=== PATIENT | female | born 1985 | race Caucasian/White ===

== ENCOUNTER 2017-08-10 05:41 | Inpatient (IN) | payer OTHER ==
[2017-08-10] MEDS ORDERED: RINGERS SOLUTION,LACTATED 1,000 ML IV SCH (06:45)
[2017-08-10 07:22] LABS: BASOPHILS % (AUTO) 0.2 % (0.0-2.0); EOSINOPHILS % (AUTO) 1.4 % (1.0-6.0); HEMOGLOBIN 10.9 g/dL (12.0-16.0); LYMPHOCYTES # (AUTO) 1.7 K/uL (1.0-4.8); LYMPHOCYTES % (AUTO) 17.6 % (22.0-44.0); MEAN CORPUSCULAR HEMOGLOBIN 29.3 pg (26.0-34.0); MEAN CORPUSCULAR HGB CONC 34.1 G/dL (31.0-37.0); MEAN CORPUSCULAR VOLUME 86 fL (80-100); MONOCYTES # (AUTO) 0.6 K/uL (0.1-1.0); MONOCYTES % (AUTO) 6.1 % (2.0-9.0); NEUTROPHILS # (AUTO) 7.2 K/uL (1.8-7.7); NEUTROPHILS % (AUTO) 74.7 % (40.0-70.0); PLATELET COUNT (AUTO)-OB 176 K/uL (150-450); RED BLOOD CELL COUNT(AUTO) 3.72 MIL/uL (4.00-5.20); RED CELL DISTRIBUTION WIDTH 13.6 % (11.5-14.5)
[2017-08-10] MEDS ORDERED: RINGERS SOLUTION,LACTATED 1,000 ML IV ONE (07:40)
[2017-08-10] MEDS ORDERED: METOCLOPRAMIDE HCL 5 MG/ML 2 ML VIAL IVP ONE (07:45)
[2017-08-10] MEDS ORDERED: CITRIC ACID/SODIUM CITRATE 30 ML SOLUTION UDCUP PO ONE (07:45)
[2017-08-10 08:06] VITALS: BP 113/57
[2017-08-10] MEDS ORDERED: CeFAZolin 2 GM/DEXTROSE 50 ML IV ONE (08:23)
[2017-08-10] MEDS ORDERED: FentaNYL CITRATE-PF 100 MCG/2 ML VIAL ONE ×2 (08:23→13:30)
[2017-08-10] MEDS ORDERED: MORPHINE SULFATE/PF 1 MG/ML 10 ML AMP ONE ×2 (08:24→08:31)
[2017-08-10] MEDS ORDERED: SODIUM CHLORIDE 0.9% 300 ML ONE (08:24)
[2017-08-10] MEDS ORDERED: TERBUTALINE SULFATE 1 MG/ML VIAL SQ PRN (08:30)
[2017-08-10] MEDS ORDERED: INFLUENZA VIRUS VACCINE QVS 2017-18 (3YR+)/PF 60 MCG/0.5 ML SYRINGE IM ONE (09:30)
[2017-08-10] MEDS ORDERED: PROMETHAZINE HCL 12.5 MG in SODIUM CHLORIDE 0.9% 50 ML IV PRN (12:30)
[2017-08-10] MEDS ORDERED: MEPERIDINE-PF 25 MG/ML SYRINGE IVP PRN (12:30)
[2017-08-10] MEDS ORDERED: ACETAMINOPHEN/CODEINE 300-30 MG TABLET PO PRN ×2 (12:30)
[2017-08-10] MEDS ORDERED: FentaNYL CITRATE-PF 100 MCG/2 ML VIAL IVP PRN ×6 (12:30→13:15)
[2017-08-10] MEDS ORDERED: ONDANSETRON HCL 4 MG/2 ML VIAL IVP PRN ×2 (12:30→13:15)
[2017-08-10] MEDS ORDERED: LANOLIN 7 GM OINTMENT TP PRN (12:30)
[2017-08-10] MEDS ORDERED: DiphenhydrAMINE HCL 50 MG/ML VIAL IVP PRN ×2 (12:30→13:15)
[2017-08-10] MEDS ORDERED: NALBUPHINE HCL 10 MG/ML VIAL IVP PRN (12:30)
[2017-08-10] MEDS ORDERED: NALOXONE HCL 0.4 MG/ML VIAL IVP PRN (13:15)
[2017-08-10] MEDS: NALBUPHINE HCL 10 MG/ML VIAL IVP SCH ×2 (15:32→21:28)
[2017-08-10] MEDS: DEXTROSE 5%-0.45% SODIUM CHL 1,000 ML IV SCH ×2 (17:42→22:22)
[2017-08-10] MEDS ORDERED: NALBUPHINE HCL 10 MG/ML VIAL IVP SCH (18:00)
[2017-08-11] MEDS: DEXTROSE 5%-0.45% SODIUM CHL 1,000 ML IV SCH ×2 (02:22→06:30)
[2017-08-11] MEDS: NALBUPHINE HCL 10 MG/ML VIAL IVP SCH (03:32)
[2017-08-11] MEDS ORDERED: EPHEDrine SULFATE 50 MG/ML VIAL IM ONE (05:38)
[2017-08-11] MEDS ORDERED: OXYTOCIN 10 UNITS/ML VIAL IM ONE (05:38)
[2017-08-11] MEDS ORDERED: DEXAMETHASONE SOD PHOS 4 MG/ML VIAL IVP ONE (05:38)
[2017-08-11] MEDS ORDERED: LIDOCAINE HCL/PF 2% 5 ML VIAL IM ONE (05:38)
[2017-08-11] MEDS ORDERED: 0.9% SODIUM CHLORIDE 10 ML VIAL IVP ONE (05:38)
[2017-08-11] MEDS: IBUPROFEN 800 MG TABLET PO SCH ×4 (06:11→23:33)
[2017-08-11 08:40] LABS: BASOPHILS % (AUTO) 0.6 % (0.0-2.0); EOSINOPHILS % (AUTO) 0.4 % (1.0-6.0); HEMATOCRIT 25.8 % (36-46); HEMOGLOBIN 8.8 g/dL (12.0-16.0); LYMPHOCYTES # (AUTO) 2.1 K/uL (1.0-4.8); MEAN CORPUSCULAR HEMOGLOBIN 28.8 pg (26.0-34.0); MEAN CORPUSCULAR HGB CONC 34.2 G/dL (31.0-37.0); MEAN CORPUSCULAR VOLUME 84 fL (80-100); MONOCYTES # (AUTO) 0.7 K/uL (0.1-1.0); MONOCYTES % (AUTO) 6.3 % (2.0-9.0); NEUTROPHILS # (AUTO) 8.7 K/uL (1.8-7.7); NEUTROPHILS % (AUTO) 74.7 % (40.0-70.0); PLATELET COUNT (AUTO)-OB 159 K/uL (150-450); RED BLOOD CELL COUNT(AUTO) 3.07 MIL/uL (4.00-5.20); RED CELL DISTRIBUTION WIDTH 13.8 % (11.5-14.5)
[2017-08-11] MEDS: MAGNESIUM HYDROXIDE SUSPENSION 30 ML UDCUP PO SCH ×2 (08:59→21:06)
[2017-08-12] MEDS: IBUPROFEN 800 MG TABLET PO SCH ×3 (05:36→17:31)
[2017-08-12] MEDS: MAGNESIUM HYDROXIDE SUSPENSION 30 ML UDCUP PO SCH ×2 (09:00→21:00)
[2017-08-13] MEDS: IBUPROFEN 800 MG TABLET PO SCH ×3 (00:16→11:56)
[2017-08-13] MEDS: MAGNESIUM HYDROXIDE SUSPENSION 30 ML UDCUP PO SCH (09:00)
[2017-08-13] MEDS ORDERED: IBUP-2071 PO (09:48)
[2017-08-13] MEDS ORDERED: FERR-89 PO (09:49)
[2017-08-13] MEDS ORDERED: DSS100 PO (09:50)
[2017-08-13] MEDS ORDERED: ACET1TAB12 PO (09:52)
== END 2017-08-13 14:15 | disposition home or self-care (01) | DRG 766 ==
LOC: 4S 05:41 → OBSVTOIN 05:41 → 4S 11:26
PROVIDERS: ADMIT Obstetrics & Gynecology; ATTEND Obstetrics & Gynecology
PROC: 10D00Z1 Extraction of Products of Conception, Low, Open Approach (ICD-10-PCS; principal; 2017-08-10)
PROC: 0UB70ZZ Excision of Bilateral Fallopian Tubes, Open Approach (ICD-10-PCS; 2017-08-10)
PROC: 3E0234Z Introduction of Serum, Toxoid and Vaccine into Muscle, Percutaneous Approach (ICD-10-PCS; 2017-08-13)
DX: O34.211 Maternal care for low transverse scar from previous cesarean delivery (principal); Z23 Encounter for immunization; Z30.2 Encounter for sterilization; Z37.0 Single live birth; Z3A.39 39 weeks gestation of pregnancy
CPT/HCPCS: 86850; 86900; 86901; 87081; 88302; 90471; J0690; J1100; J2300; J2590; J2765; J3010; J3105; J3490; J7050; J7120